=== PATIENT | female | born 1985 | race Caucasian/White ===

== ENCOUNTER 2019-04-27 14:26 | Observation (INO) ==
[2019-04-27 15:42] LABS: BILIRUBIN,URINE NEGATIVE (NEGATIVE); BLOOD/HEMOGLOBIN,URINE NEGATIVE (NEGATIVE); GLUCOSE, URINE NEGATIVE (NEGATIVE); KETONES,URINE NEGATIVE (NEGATIVE); LEUKOCYTE ESTERASE ,URINE NEGATIVE (NEGATIVE); NITRITES,URINE NEGATIVE (NEGATIVE); PROTEIN,URINE 1+ (NEGATIVE); UROBILINOGEN,URINE NORMAL (NORMAL)
[2019-04-27] MEDS: XOPENEX 1.25 MG/3 ML NEBULE NEB SCH (15:50)
[2019-04-27 15:52] LABS: APPEARANCE,URINE CLEAR (CLEAR); BACTERIA,URINE NEGATIVE /HPF (NEGATIVE); COLOR,URINE YELLOW (YELLOW); MUCUS,URINE RARE /HPF (NEGATIVE); RBC,URINE 0-2 /HPF (0-3); SQUAMOUS EPITHELIAL CELL,UR FEW /HPF (NEGATIVE)
[2019-04-27 15:52] LABS: ABG BASE EXCESS 7.1 mmol/L (-2.0-2.0)
[2019-04-27 15:53] LABS: ABG HCO3 30.1 mmol/L (22-26)
[2019-04-27] MEDS ORDERED: NS 1/2 1000 ML IV 1,000 ML IV ONE (15:54)
[2019-04-27 15:55] LABS: BASOPHILS % (AUTO) 0.2 % (0.2-1.0); HEMATOCRIT 46.1 % (36.0-47.0); LYMPHOCYTES # (AUTO) 1.4 X10^3/uL (1.3-2.9); LYMPHOCYTES % (AUTO) 16.2 % (21.0-51.0); MEAN CORPUSCULAR HEMOGLOBIN 29.7 pg (27.0-34.0); MEAN CORPUSCULAR HGB CONC 34.7 g/dL (33.0-35.0); MEAN CORPUSCULAR VOLUME 85.6 fL (80.0-100.0); MEAN PLATELET VOLUME 8.5 fL (7.4-11.0); MONOCYTES # (AUTO) 1.1 x10^3/uL (0.3-0.8); MONOCYTES % (AUTO) 12.2 % (0.0-13.0); NEUTROPHILS # (AUTO) 6.2 x10^3/uL (2.2-4.8); NEUTROPHILS % (AUTO) 71.4 % (42.0-75.0); PLATELET COUNT 218 X10^3/uL (150.0-450.0); RED BLOOD COUNT 5.39 X10^6/uL (3.5-5.4); WHITE BLOOD COUNT 8.7 X10^3/uL (3.6-10.0)
[2019-04-27] MEDS ORDERED: SALINE 3% 15 ML NEB TX NEB ONE (16:00)
[2019-04-27] MEDS ORDERED: LEVAQUIN PREMIX IV 750 MG 750 MG/150 ML BAG IV SCH (16:00)
[2019-04-27] MEDS: ZITHROMAX INJ 500 MG VIAL 500 MG in NS 250 ML IV 250 ML IV SCH (16:07)
[2019-04-27 16:08] LABS: ALANINE AMINOTRANSFERASE 103 Units/L (12-78); ALBUMIN 3.8 g/dL (3.4-5.0); ALKALINE PHOSPHATASE 105 Units/L (46-116); ASPARTATE AMINO TRANSFERASE 84 Units/L (15-37); BLOOD UREA NITROGEN 9 mg/dL (7-18); CALCIUM 9.2 mg/dL (8.5-10.1); CARBON DIOXIDE 26.8 mmol/L (21-32); CHLORIDE 101 mmol/L (98-107); COR NA(FOR HYPERGLY) 140 mmol/L (136-145); CREATININE 0.75 mg/dL (0.55-1.02); SODIUM 140 mmol/L (136-145); TOTAL PROTEIN 8.4 g/dL (6.4-8.2); eGFR NON BLACK RACES > 60 (>60)
[2019-04-27] MEDS: ROBITUSSIN DM PO SCH ×2 (16:09→20:43)
[2019-04-27] MEDS: NS 1/2 1000 ML IV 1,000 ML IV SCH (16:18)
[2019-04-27] MEDS: VSL#3 PO SCH (16:36)
[2019-04-27] MEDS: TUSSIONEX PENNKINETIC SUSP PO SCH (16:36)
--- NOTE | 2019-04-27 16:37 | RAD ---
HISTORYPneumoniaSTUDYChest, PA and lateral [id number] heart size. The lungs are essentially clear. Slight nonspecific interstitial prominence is noted in the bases. No definite consolidation or pneumonia or pleural fluid is demonstrated. Minimal linear density at the left base is attributed to fibrosis or subsegmental atelectasis.IMPRESSIONNo acute chest findings. See above.Electronically signed by: HANNA CARUSO (Apr 27, 2019 16:36:02)
[2019-04-27 16:41] VITALS: BMI 40.2
[2019-04-27 16:44] LABS: MYCOPLASMA PNEUMONIAE IGM AB NEGATIVE (NEGATIVE)
[2019-04-27] MEDS ORDERED: CATAPRES TAB 0.1 MG PO PRN (16:47)
[2019-04-27] MEDS ORDERED: CEFTIN PO ONE ×2 (18:02→18:11)
[2019-04-27] MEDS: SOLU-Medrol 40 MG VIAL IVP SCH ×2 (18:11→22:27)
[2019-04-27] MEDS: SOLU-Medrol 40 MG VIAL ONE ×2 (18:13→20:44)
[2019-04-27] MEDS: BROVANA IN SCH (20:05)
[2019-04-27] MEDS: PULMICORT NEB TX 0.5 MG NEB SCH (20:15)
[2019-04-27] MEDS: CEFTIN PO SCH (20:43)
[2019-04-27] MEDS: TAMIFLU PO SCH (20:45)
[2019-04-28] MEDS: MUCOMYST 20% 200 MG/ML NEB SCH ×4 (00:15→17:16)
[2019-04-28] MEDS: XOPENEX 1.25 MG/3 ML NEBULE NEB SCH ×5 (00:15→17:16)
[2019-04-28] MEDS: TUSSIONEX PENNKINETIC SUSP PO SCH ×2 (04:14→15:56)
[2019-04-28] MEDS: NS 1/2 1000 ML IV 1,000 ML IV SCH ×2 (05:07→20:24)
[2019-04-28] MEDS ORDERED: NS 1/2 1000 ML IV 1,000 ML IV ONE ×2 (05:29→20:00)
[2019-04-28 05:37] LABS: BASOPHILS % (AUTO) 0.1 % (0.2-1.0); HEMATOCRIT 42.8 % (36.0-47.0); HEMOGLOBIN 14.7 g/dL (12.0-16.0); LYMPHOCYTES # (AUTO) 1.2 X10^3/uL (1.3-2.9); MEAN CORPUSCULAR HEMOGLOBIN 29.7 pg (27.0-34.0); MEAN CORPUSCULAR HGB CONC 34.3 g/dL (33.0-35.0); MEAN CORPUSCULAR VOLUME 86.8 fL (80.0-100.0); MEAN PLATELET VOLUME 8.8 fL (7.4-11.0); MONOCYTES # (AUTO) 0.7 x10^3/uL (0.3-0.8); MONOCYTES % (AUTO) 12.3 % (0.0-13.0); NEUTROPHILS # (AUTO) 3.5 x10^3/uL (2.2-4.8); NEUTROPHILS % (AUTO) 65.6 % (42.0-75.0); PLATELET COUNT 207 X10^3/uL (150.0-450.0); RED BLOOD COUNT 4.93 X10^6/uL (3.5-5.4); RED CELL DISTRIBUTION WIDTH 12.9 % (11.6-16.5); WHITE BLOOD COUNT 5.4 X10^3/uL (3.6-10.0)
[2019-04-28 05:59] LABS: ALANINE AMINOTRANSFERASE 103 Units/L (12-78); ALBUMIN 3.4 g/dL (3.4-5.0); ALKALINE PHOSPHATASE 94 Units/L (46-116); ASPARTATE AMINO TRANSFERASE 74 Units/L (15-37); BLOOD UREA NITROGEN 9 mg/dL (7-18); CALCIUM 8.6 mg/dL (8.5-10.1); CARBON DIOXIDE 26.2 mmol/L (21-32); CHLORIDE 102 mmol/L (98-107); COR NA(FOR HYPERGLY) 142 mmol/L (136-145); CREATININE 0.72 mg/dL (0.55-1.02); SODIUM 140 mmol/L (136-145); TOTAL PROTEIN 7.7 g/dL (6.4-8.2); eGFR NON BLACK RACES > 60 (>60)
[2019-04-28] MEDS: SOLU-Medrol 40 MG VIAL IVP SCH ×3 (06:27→20:22)
[2019-04-28] MEDS: CEFTIN PO SCH ×2 (08:13→20:22)
[2019-04-28] MEDS: TAMIFLU PO SCH ×2 (08:14→20:23)
[2019-04-28] MEDS: VSL#3 PO SCH (08:14)
[2019-04-28] MEDS: ROBITUSSIN DM PO SCH ×4 (08:14→20:23)
[2019-04-28] MEDS: ZITHROMAX INJ 500 MG VIAL 500 MG in NS 250 ML IV 250 ML IV SCH (08:14)
[2019-04-28] MEDS: PULMICORT NEB TX 0.5 MG NEB SCH ×2 (08:48→21:36)
[2019-04-28] MEDS: BROVANA IN SCH ×2 (08:56→21:36)
--- NOTE | 2019-04-28 11:11 | RAD ---
HISTORY:BronchopneumoniaStudy: Single view chestComparison:YesterdayFindings:Lung volumes are reduced with bibasilar atelectasis. No infiltrate, effusion, or pneumothorax identified .Cardiac and mediastinal contours are within normal limits .The soft tissues are intact .IMPRESSION:1. Low lung volumes with bibasilar atelectasis.Electronically signed by: ROBBI VARGAS (Apr 28, 2019 11:10:32)
--- NOTE | 2019-04-28 13:25 | DR.H&P ---
H&P - History & Physical for Day of: H&P Date: 04/27/19 - Chief Complaint Chief Complaint: CCC, FLU, SOB - History of Present Illness History of Present Illness: PT IS 34 WF DIRECT ADMIT WITH BRONCHOPNEUMONIA FOLLOWING ACUTE FLU ILLNESS. PT HAD ABNORMAL CXR ON 04/26. PT HAD BEEN ON PO AUGMENTIN WITHOUT IMPROVEMENT. PT REPORTS WHEEZING AND SOB. PT DENIES ANY HISTORY OF ASTHMA. PT ADMITTED FOR TREATMENT OF ACUTE ILLNESS - Past Medical History Past Medical History: Hypertension - Past Surgical History Surgical History: NUCLEAR TECHNOLOGIST Surgery - Family History Family Medical History: Coronary Artery Disease, Hypertension - Social History Does patient currently use any type of tobacco product: Yes Have you used tobacco products in the last 12 months: Yes Type of Tobacco Use: Cigarettes How many years tobacco product used: 15 Does any household member use tobacco: No Alcohol Use: Occasionally Drug Use: None - Medications Home Medications: No Known Drug Allergies Allergy (Verified 04/26/19 12:26) - Review of Systems Constitutional: Fever, Chills, Weakness, Malaise Eyes: No Symptoms Reported ENT: No Symptoms Reported Respiratory: Cough, Shortness of Breath, Hemoptysis, SOB with Excertion, Pleuritic Pain, Wheezing Cardiovascular: No Symptoms Reported Gastrointestinal: Nausea, Diarrhea Genitourinary: No Symptoms Reported Musculoskeletal: No Symptoms Reported Skin: No Symptoms Reported Neurological: No Symptoms Reported - Physical Exam Vital Signs: Temperature 98.3 F Pulse Rate [Right Brachial] 105 Pulse Rate 105 Respiratory Rate 19 Blood Pressure [Right Arm] 154/90 Blood Pressure 149/98 O2 Sat by Pulse Oximetry 92 Oriented: Normal Eyes: Normal Ear: Normal Nose: Normal Throat: Dry Respiratory: RLL Diminished, LLL Diminished, RUL Insp. Wheeze, FLORINDA Insp.Wheeze Cardiovascular: Tachycardia : Normal Auscultation: Bowel Sounds: Normal Palpation: Normal Tenderness: Normal Skin: Normal Musculoskeletal: Normal Psychiatric: Normal Mood Description: Calm Speech Pattern: Clear, Appropriate - Assessment/Plan (1) Pneumonia Status: Acute Plan: ADMIT, PNEUMONIA PROTOCOL. BLOOD CULTURES AND SPUTUM ON ADMISSION]. ABG ON ADMISSION, RESP THERAPY, SUPPLEMENTAL O2. PULMONARY TOILETING, IV HYDRATION. IV ATBX THERAPY (2) Influenza Status: Acute - Allergies Allergies/Adverse Reactions: Allergies Allergy/AdvReac Type Severity Reaction Status Date / Time No Known Drug Allergies Allergy Verified 04/26/19 12:26
--- NOTE | 2019-04-28 13:32 | PCM.PROG ---
Progress Note - Progress Note for Day of Date of Exam: 04/28/19 - Subjective Subjective: 34 WF ADMITTED ON 04/27 WITH INFLUENZA WITH RESPIRATORY COMPLICATIONS, BRONCHOPNEMONIA. PT CONTINUES WITH CO CHEST CONGESTION THIS AM WITH INSPIRATORY AND EXP WHEEZES ON EXAM. PT CXR NEGATIVE THIS. PLAN TO CONTINUE SOLU MEDROL IV, OBTAIN CT CHEST WITH CONTRAST. PT HAS PMH OF HTN, WILL START LOW DOSE OF LISINOPRIL HCTZ TODAY, CONTINUE BP MONITORING, RESP THERAPY. PT DENIES ANY N/V/D TODAY. CONTINUE TO ENCOURAGE ORAL HYDRATION ADN PULMONARY TOILETING. - Past Medical Family Social History Past Med/Fam/Surg Hx: No changes since H&P Allergies: Allergies No Known Drug Allergies Allergy (Verified 04/26/19 12:26) - Review of Systems ROS: No change since H&P - Vital Signs and I&O's Vital Signs: Temperature 98.3 F Pulse Rate [Right Brachial] 105 Pulse Rate 105 Respiratory Rate 19 Blood Pressure [Right Arm] 154/90 Blood Pressure 149/98 O2 Sat by Pulse Oximetry 92 Intake and Output: Intake & Output 04/26/19 04/27/19 04/28/19 04/29/19 11:59 11:59 11:59 11:59 Intake Total 1600 / 1600 Balance 1600 / 1600 - Physical Exam Oriented: Normal Eyes: Normal Ear: Normal Nose: Normal Throat: Dry Respiratory: Wheezes, Rhonchi Cardiovascular: Tachycardia : Normal Auscultation: Bowel Sounds: Normal Tenderness: Normal Skin: Normal Musculoskeletal: Normal Psychiatric: Normal Mood Description: Calm Speech Pattern: Clear, Appropriate - Laboratory and Diagnostics Result Diagrams: 04/28/19 05:13 04/28/19 05:13 Labs: 04/27/19 16:20 Sputum - Expectorated Sputum Sputum Culture - Preliminary 04/27/19 16:20 Sputum - Expectorated Sputum - Final Laboratory WBC 5.4 X10^3/uL (3.6-10.0) 04/28/19 05:13 RBC 4.93 X10^6/uL (3.5-5.4) 04/28/19 05:13 Hgb 14.7 g/dL (12.0-16.0) 04/28/19 05:13 Hct 42.8 % (36.0-47.0) 04/28/19 05:13 MCV 86.8 fL (80.0-100.0) 04/28/19 05:13 MCH 29.7 pg (27.0-34.0) 04/28/19 05:13 MCHC 34.3 g/dL (33.0-35.0) 04/28/19 05:13 RDW 12.9 % (11.6-16.5) 04/28/19 05:13 Plt Count 207 X10^3/uL (150.0-450.0) 04/28/19 05:13 MPV 8.8 fL (7.4-11.0) 04/28/19 05:13 Neut % (Auto) 65.6 % (42.0-75.0) 04/28/19 05:13 Lymph % (Auto) 22.0 % (21.0-51.0) 04/28/19 05:13 [place] % (Auto) 12.3 % (0.0-13.0) 04/28/19 05:13 Eos % (Auto) 0.0 % (0.9-2.9) L 04/28/19 05:13 Baso % (Auto) 0.1 % (0.2-1.0) L 04/28/19 05:13 Neut # (Auto) 3.5 x10^3/uL (2.2-4.8) 04/28/19 05:13 Lymph # (Auto) 1.2 X10^3/uL (1.3-2.9) L 04/28/19 05:13 [place] # (Auto) 0.7 x10^3/uL (0.3-0.8) 04/28/19 05:13 Eos # (Auto) 0.0 x10^3/uL (0.0-0.2) 04/28/19 05:13 Baso # (Auto) 0.0 X10^3/uL (0.0-0.1) 04/28/19 05:13 Absolute Nucleated RBC 0.1 /100WBC 04/28/19 05:13 Sample Site [facility] 04/27/19 15:45 ABG pH 7.530 (7.35-7.45) H 04/27/19 15:45 ABG pCO2 36.0 mmHg (35.0-45.0) 04/27/19 15:45 ABG pO2 64.0 mmHg (80.0-100.0) L 04/27/19 15:45 ABG HCO3 30.1 mmol/L (22-26) H* 04/27/19 15:45 ABG O2 Saturation 94.0 % (90-100) 04/27/19 15:45 ABG Base Excess 7.1 mmol/L (-2.0-2.0) H 04/27/19 15:45 Tom Test N/a 04/27/19 15:45 A-a Gradient 41.0 mmHg 04/27/19 15:45 FiO2 21.0 04/27/19 15:45 Blood Gas Comments Pt emil well elj 04/27/19 15:45 Sodium 140 mmol/L (136-145) 04/28/19 05:13 Corrected Sodium 142 mmol/L (136-145) 04/28/19 05:13 Potassium 3.6 mmol/L (3.5-5.1) 04/28/19 05:13 Chloride 102 mmol/L (98-107) 04/28/19 05:13 Carbon Dioxide 26.2 mmol/L (21-32) 04/28/19 05:13 BUN 9 mg/dL (7-18) 04/28/19 05:13 Creatinine 0.72 mg/dL (0.55-1.02) 04/28/19 05:13 Est GFR (MDRD) Af Amer > 60 (>60) 04/28/19 05:13 Est GFR (MDRD) Non-Af > 60 (>60) 04/28/19 05:13 Glucose 163 mg/dL (65-99) H 04/28/19 05:13 Lactic Acid 1.1 mmol/L (0.4-2.0) 04/27/19 15:35 Calcium 8.6 mg/dL (8.5-10.1) 04/28/19 05:13 Corrected Calcium TNP 04/28/19 05:13 Total Bilirubin 0.20 mg/dL (0.2-1.0) 04/28/19 05:13 AST 74 Units/L (15-37) H 04/28/19 05:13 ALT 103 Units/L (12-78) H 04/28/19 05:13 Alkaline Phosphatase 94 Units/L (46-116) 04/28/19 05:13 Total Protein 7.7 g/dL (6.4-8.2) 04/28/19 05:13 Albumin 3.4 g/dL (3.4-5.0) 04/28/19 05:13 Globulin 4.3 g/dL (2.5-4.5) 04/28/19 05:13 Albumin/Globulin Ratio 0.8 Ratio (1.1-2.1) L 04/28/19 05:13 Specimen Type Clean catch urine 04/27/19 15:10 Urine Color Yellow (YELLOW) 04/27/19 15:10 Urine Appearance Clear (CLEAR) 04/27/19 15:10 Urine pH 7.0 (5.0 - 8.0) 04/27/19 15:10 Ur Specific [place] 1.015 (1.000-1.030) 04/27/19 15:10 Urine Protein 1+ (NEGATIVE) 04/27/19 15:10 Urine Glucose (UA) Negative (NEGATIVE) 04/27/19 15:10 Urine Ketones Negative (NEGATIVE) 04/27/19 15:10 Urine Occult Blood Negative (NEGATIVE) 04/27/19 15:10 Urine Nitrite Negative (NEGATIVE) 04/27/19 15:10 Urine Bilirubin Negative (NEGATIVE) 04/27/19 15:10 Urine Urobilinogen Normal (NORMAL) 04/27/19 15:10 Ur Leukocyte Esterase Negative (NEGATIVE) 04/27/19 15:10 Urine RBC 0-2 /HPF (0-3) 04/27/19 15:10 Urine WBC None seen /HPF (0-5) 04/27/19 15:10 Ur Squamous Epith Cells Few /HPF (NEGATIVE) 04/27/19 15:10 Urine Bacteria Negative /HPF (NEGATIVE) 04/27/19 15:10 Urine Mucus Rare /HPF (NEGATIVE) 04/27/19 15:10 Ur Culture Indicated? No/not indicated 04/27/19 15:10 Mycoplasma pneumon IgG Negative (NEGATIVE) 04/27/19 15:20 - Plan (1) Pneumonia Status: Acute Plan: PNEUMONIA PROTOCOL. BLOOD CULTURES AND SPUTUM ON ADMISSION]. ABG ON ADMISSION, RESP THERAPY, SUPPLEMENTAL O2. PULMONARY TOILETING, IV HYDRATION. IV ATBX THERAPY, BP CONTROL. CT CHEST (2) Influenza Status: Acute
[2019-04-28] MEDS: ZESTORETIC 10/ 12.5MG PO SCH (14:08)
[2019-04-28] MEDS: PROTONIX INJ 40 MG VIAL IVP SCH (14:08)
[2019-04-28] MEDS ORDERED: POTASSIUM CHL 60 MEQ/NS 0.45% 500 ML IV PRN (14:36)
[2019-04-28] MEDS ORDERED: KLOR-CON PO PRN (14:36)
[2019-04-28] MEDS ORDERED: K-RIDER 10 MEQ/NS 100 ML 10 MEQ/100 ML BAG IV PRN (14:36)
[2019-04-28] MEDS ORDERED: POTASSIUM CHLORIDE LIQ 20 MEQ UDC PO PRN (14:36)
[2019-04-28] MEDS ORDERED: POTASSIUM CHL 40 MEQ/NS 0.45% 500 ML IV PRN (14:36)
[2019-04-28] MEDS ORDERED: MICRO K EXTEN CAP 10 MEQ PO PRN (14:36)
[2019-04-28] MEDS: K-DUR TAB 20 MEQ PO PRN (15:07)
[2019-04-29] MEDS: XOPENEX 1.25 MG/3 ML NEBULE NEB SCH ×4 (00:55→17:28)
[2019-04-29] MEDS: MUCOMYST 20% 200 MG/ML NEB SCH ×4 (00:55→17:28)
[2019-04-29] MEDS: TUSSIONEX PENNKINETIC SUSP PO SCH ×2 (04:06→16:15)
[2019-04-29 05:26] LABS: BASOPHILS % (AUTO) 0.2 % (0.2-1.0); HEMATOCRIT 41.9 % (36.0-47.0); HEMOGLOBIN 14.1 g/dL (12.0-16.0); LYMPHOCYTES # (AUTO) 1.7 X10^3/uL (1.3-2.9); LYMPHOCYTES % (AUTO) 16.4 % (21.0-51.0); MEAN CORPUSCULAR HEMOGLOBIN 29.3 pg (27.0-34.0); MEAN CORPUSCULAR HGB CONC 33.7 g/dL (33.0-35.0); MEAN PLATELET VOLUME 8.5 fL (7.4-11.0); MONOCYTES % (AUTO) 9.3 % (0.0-13.0); NEUTROPHILS # (AUTO) 7.6 x10^3/uL (2.2-4.8); NEUTROPHILS % (AUTO) 74.1 % (42.0-75.0); PLATELET COUNT 272 X10^3/uL (150.0-450.0); RED BLOOD COUNT 4.82 X10^6/uL (3.5-5.4); WHITE BLOOD COUNT 10.2 X10^3/uL (3.6-10.0)
[2019-04-29 05:49] LABS: ALANINE AMINOTRANSFERASE 129 Units/L (12-78); ALBUMIN 3.3 g/dL (3.4-5.0); ALKALINE PHOSPHATASE 82 Units/L (46-116); ASPARTATE AMINO TRANSFERASE 82 Units/L (15-37); BLOOD UREA NITROGEN 14 mg/dL (7-18); CALCIUM 8.8 mg/dL (8.5-10.1); CARBON DIOXIDE 27.6 mmol/L (21-32); CHLORIDE 102 mmol/L (98-107); COR CA(FOR HYPOALB) 9.4 mg/dL (8.5-10.1); COR NA(FOR HYPERGLY) 141 mmol/L (136-145); CREATININE 0.73 mg/dL (0.55-1.02); SODIUM 140 mmol/L (136-145); TOTAL PROTEIN 7.3 g/dL (6.4-8.2); eGFR NON BLACK RACES > 60 (>60)
[2019-04-29] MEDS: CEFTIN PO SCH ×2 (08:07→21:38)
[2019-04-29] MEDS: ZESTORETIC 10/ 12.5MG PO SCH (08:07)
[2019-04-29] MEDS: TAMIFLU PO SCH ×2 (08:07→21:38)
[2019-04-29] MEDS: VSL#3 PO SCH (08:08)
[2019-04-29] MEDS: PROTONIX INJ 40 MG VIAL IVP SCH (08:08)
[2019-04-29] MEDS: ROBITUSSIN DM PO SCH ×3 (08:08→17:12)
[2019-04-29] MEDS: ZITHROMAX INJ 500 MG VIAL 500 MG in NS 250 ML IV 250 ML IV SCH (08:13)
[2019-04-29] MEDS: PULMICORT NEB TX 0.5 MG NEB SCH ×2 (08:54→20:38)
[2019-04-29] MEDS: BROVANA IN SCH ×2 (09:07→20:49)
[2019-04-29] MEDS: NS 1/2 1000 ML IV 1,000 ML IV SCH ×2 (11:19→17:13)
--- NOTE | 2019-04-29 14:54 | CT ---
CHEST WITH CONCLINICAL INDICATION: SOB, PNAPROCEDURE: Following administration of non-ionic IV contrast, postcontrast CT images were obtained through the chest. Dose reduction techniques including Automated Exposure Control (AEC) and adjustment of mA and kV were utlized.COMPARISON: [None]FINDINGS:The heart is normal in size . No pericardial effusion . No suspicious mediastinal or axillary lymph nodes. Streaky bibasilar atelectasis. No pleural effusions or pneumothorax.Airways are patent . No suspicious pulmonary nodules or masses .Limited images of the upper abdomen are unremarkable.No aggressive osseous lesions.IMPRESSION:1. Streaky bibasilar atelectasis that may be secondary to splinting. Although not specifically infectious in appearance, a superimposed infection cannot be excluded.Electronically signed by: ANGEL DOWNING (Apr 29, 2019 14:54:44)
[2019-04-29] MEDS ORDERED: NS 1/2 1000 ML IV 1,000 ML IV ONE (16:49)
[2019-04-29] MEDS: ROBITUSSIN CF SYRUP PO SCH ×2 (18:25→21:51)
[2019-04-30] MEDS: NS 1/2 1000 ML IV 1,000 ML IV SCH (00:03)
[2019-04-30] MEDS: MUCOMYST 20% 200 MG/ML NEB SCH ×2 (00:52→05:30)
[2019-04-30] MEDS: XOPENEX 1.25 MG/3 ML NEBULE NEB SCH ×2 (00:53→05:30)
[2019-04-30] MEDS: TUSSIONEX PENNKINETIC SUSP PO SCH (04:22)
[2019-04-30 05:51] LABS: ALANINE AMINOTRANSFERASE 115 Units/L (12-78); ALBUMIN 3.1 g/dL (3.4-5.0); ALKALINE PHOSPHATASE 77 Units/L (46-116); ASPARTATE AMINO TRANSFERASE 55 Units/L (15-37); BLOOD UREA NITROGEN 14 mg/dL (7-18); CALCIUM 8.3 mg/dL (8.5-10.1); CARBON DIOXIDE 30.3 mmol/L (21-32); CHLORIDE 103 mmol/L (98-107); SODIUM 139 mmol/L (136-145); TOTAL PROTEIN 6.6 g/dL (6.4-8.2); eGFR NON BLACK RACES > 60 (>60)
[2019-04-30] MEDS ORDERED: NS 1/2 1000 ML IV 1,000 ML IV ONE ×2 (06:18→09:51)
[2019-04-30] MEDS: K-DUR TAB 20 MEQ PO PRN (06:29)
[2019-04-30] MEDS ORDERED: PREDNISONE TAB 20 MG PO SCH ×2 (07:00→09:00)
[2019-04-30] MEDS: ZESTORETIC 10/ 12.5MG PO SCH ×2 (08:13→08:20)
[2019-04-30] MEDS: VSL#3 PO SCH (08:14)
[2019-04-30] MEDS: ZITHROMAX INJ 500 MG VIAL 500 MG in NS 250 ML IV 250 ML IV SCH (08:14)
[2019-04-30] MEDS: CEFTIN PO SCH (08:14)
[2019-04-30] MEDS: PROTONIX INJ 40 MG VIAL IVP SCH (08:14)
[2019-04-30] MEDS: TAMIFLU PO SCH (08:14)
[2019-04-30] MEDS: ROBITUSSIN CF SYRUP PO SCH (08:32)
[2019-04-30] MEDS: BROVANA IN SCH (09:31)
[2019-04-30] MEDS: PULMICORT NEB TX 0.5 MG NEB SCH (09:33)
[2019-04-30 10:01] VITALS: BP 111/72
== END 2019-04-30 10:55 | disposition home or self-care (01) ==
LOC: MED/SURG
PROVIDERS: ADMIT Internal Medicine; ATTEND Internal Medicine
DX: R94.31 Abnormal electrocardiogram [ECG] [EKG]; I10 Essential (primary) hypertension; J10.1 Influenza due to other identified influenza virus with other respiratory manifestations; R06.02 Shortness of breath; R07.81 Pleurodynia; J18.0 Bronchopneumonia, unspecified organism; E87.1 Hypo-osmolality and hyponatremia; R74.0 Nonspecific elevation of levels of transaminase and lactic acid dehydrogenase [LDH]
CPT/HCPCS: 36415; 36600; 71010; 71020; 71045; 71046; 71260; 80053; 81001; 82803; 83036; 83605; 83735; 84132; 85025; 86738; 87040; 87070; 87205; 93005; 94640; 94669; 94760; 96360; 96361; 96374; A4222; C9113; G9035; G0378; J0456; J2920; J7050; J7512; J7626